=== PATIENT | female | born 1955 | race Asian ===

== ENCOUNTER → 2018-11-01 | Outpatient (CLI) | payer OTHER | LOC: COL.RAD 09:00 | DX: M48.02 Spinal stenosis, cervical region (principal); M48.061 Spinal stenosis, lumbar region without neurogenic claudication; M54.12 Radiculopathy, cervical region; M54.17 Radiculopathy, lumbosacral region ==

== ENCOUNTER → 2020-12-30 | Outpatient (CLI) | payer OTHER | LOC: COL.RAD 07:19 | DX: R51.9 Headache, unspecified (principal); R42 Dizziness and giddiness; H53.9 Unspecified visual disturbance | CPT/HCPCS: A9585 ==

== ENCOUNTER → 2021-02-24 | Outpatient (CLI) | payer OTHER | LOC: COL.CARD 07:26 | DX: R51.9 Headache, unspecified (principal); R42 Dizziness and giddiness; H53.9 Unspecified visual disturbance ==